=== PATIENT | male | born 1965 | race Caucasian/White ===

== ENCOUNTER 2022-02-15 00:02 | Outpatient (CLI) | payer MEDICAID, SELFPAY ==
--- NOTE | 2022-02-15 | DI.NM_ITS ---
APPROVED REPORT Exam: Exercise Treadmill Patient Location: Out-Patient Room/Bed: Stress Nurse: Lali Carballo RN Ordering Provider:SAULO GARCÍA, Contact Number: [phone] BMI: 29.53 Baseline Rhythm: Sinus Rhythm Indications: SYNCOPE AND COLLAPSE Medical History Medical History: GERD, HTN, HLD, DM II, Sleep apnea Cardiac Medications: Omeprazole, Atorvastatin, Amlodipine Allergies: No known drug allergies Cardiac Risk Factors: HTN, Hyperlipidemia, DM, Smoking (current) Previous Cardiac Procedures: None Pretest Chest Pain Characteristics: No chest pain Exercise History: Sedentary Physical Disabilities: Left leg Lung Sounds: Right side CTA, Left side exp. wheeze Heart Sounds: Regular Stress Test Details Test: Exercise stress testing was performed using a Octavio protocol. Nuclear Acquisition: Rest Tc-99m/Stress Tc-99m 1 day Rest Isotope: Tc-99m Sestamibi. Dose: 11.3 Date: 02/15/2022 Injection Time: 0820 Stress Isotope: Tc-99m Sestamibi. Dose: 37.0 Date: 02/15/2022 Injection Time: 1005 HR Resting HR Supine: 76 bpm Max Heart Rate (APMHR): 165 bpm Resting HR Standin bpm Target HR (85% APMHR): 140 bpm Max HR Achieved: 148 bpm % of APMHR: 89 Recovery HR: 99 bpm HR response to stress: Normal HR response to stress BP Resting BP Supine: 154/98 mmHg Resting BP Standin/100 mmHg Max BP: 202/82 mmHg Recovery BP: 178/92 mmHg BP response to stress: Normal blood pressure response to stress. Comment: Hypertensive at baseline. ECG Resting ECG: Sinus Rhythm Ectopy: PVCs Stress ECG: Sinus Tachycardia ST Change: Horizontal ST depression Arrhythmia: frequent PVCs Recovery ECG: Sinus Rhythm Recovery ST Change: Horizontal ST depression Lead(s): inferior leads Recovery ST Deviation: 1 mm Recovery Arrhythmia: PVCs, couplet Clinical Reason for Termination: Fatigue, Leg pain Stress Symptoms: Dyspnea, Dizziness, General Fatigue, Leg pain, Shakiness Exercise duration: 04 min20 sec Highest Stage Reached: Stage 2: 2.5 mph at 12% grade. Exercise capacity: 6.22 METs Bland Treadmill Score: 3.5 Rate Pressure Product: 96264 Stress ECG Conclusion 1. Resting electrocardiogram showed voltage for left ventricular hypertrophy 2. Patient exercised on the Octavio protocol and completed a workload of 6.22 METS 3. Resting hypertension. Normal hemodynamic response to exercise. The patient achieved 89% of predi cted heart rate for age 4. The electrocardiographic portion of the test did not show any evidence of myocardial ischemia 5. PVCs were noted Bland Treadmill Score is 3.5 which is Moderate risk. Stress Test Summary STAGE Time (mins) Speed (mph) Grade (%) HR BP SYMPTOMS METS Supine 76 154/98 Standing 87 170/100 1 3 1.7 10 138 200/98 4.6 1 min recovery 140 202/82 3 min recovery 114 200/90 6 min recovery 99 178/92
--- OUTSIDE RECORDS SUMMARY | 2022-02-15 00:04 | XMS_ITS | Encounter Summary ---
:1965 Author Care Team Providers Name Role Phone Roque Singh MD Primary Care Provider [phone] Nette Clintoneu Network Communications Engineer [phone] Leesa Kilmarnock Project Technician [phone] Travis De Jesus MD General Surgeon [phone] Niko Banks MD Urologist [phone] Reason for Visit Renal mass; Hypertensive disorder Assessment and Plan 1. Renal mass Pending further evaluation [facility]. Any procedure will have to be coordinated with DVT treatment. Is been at least 6 months. Patient was e ncouraged to move forward with further evaluation and treatment [facility]. Case management assistance was offered but declined 2. Hypertensive disorder Patient advised to continue to avoid lisinopril in the setting of chronic cough. Trial amlodipine. Hypertension ex acerbated by significant alcohol intake daily ? amlodipine 10 mg tablet 3. Near syncope Patient reports lightheadednes s and shortness of breath with any exertion. Advise nuclear stress test for cardiac e valuation in the setting of the symptoms in addition to upcoming surgery ? NM, myocardial perfusion s can, w/ stress 4. Alcohol dependence Patient endorses daily consump tion of 10-12 beers. Moderation/cessation advised 5. Nicotine dependence with curr ent use Cessation advised 6. Screening for malignant neopl asm of respiratory tract Patient reports lightheadednes s and shortness of breath with any exertion.. Low-dose screening chest CT advised in t he setting of symptoms in addition to upcoming surgery ? LDCT, chest, for lung canc er screening 7. Chronic cough Recent upper endoscopy was nor mal. Discontinue lisinopril 8. Obstructive sleep apnea syndr ome Patient describes significant apneic episodes at home. Sleep study consultation pending 9. Colitis Well-controlled on current reg imen 10. Chronic low back pain Patient advised to avoid ibupr ofen in the setting of concurrent Xarelto use. He has used hydrocodone low-dose in the past with good result. Resume that daily as needed ? hydrocodone 5 mg-acetamino phen 325 mg tablet 11. Anxiety Significant anxiety likely exa cerbated by ongoing alcohol use. Discussion Note: None recorded.Patient educational handouts: No information available. Plan of Care Reminders Provider Appointments Follow up 20 Reilly Singh MD 03/04/2022 2:00PM ? Office 30 Melissa barker NP 03/16/2022 9:30AM Lab None ? ? recorded. Referral None ? ? recorded. Procedures None ? ? recorded. Surgeries None ? ? recorded. Imaging [place], [facility] My[facility] Perfusion 01/11/2022 [facility] ? [facility], Chest, [facility] 01/11/2022 [facility] (Radiol ogy) Medications Name Start Date ? ? amlodipine 10 mg tablet ? Take 1 tablet every day by oral route. budesonide DR - ER 3 mg capsule,delayed,extended relea se ? Take 1 capsule every day by oral route for 90 days. cyclobenzaprine 10 mg tablet ? Take 1 tablet every day by oral route for 30 days. fluocinonide 0.05 % topical cream ? APPLY TO THE AFFECTED AREA(S) BY TOPICAL ROUTE ONCE D AILY hydrocodone 5 mg-acetaminophen 325 mg tablet ? Take 1 tablet every day by oral route as needed for 2 8 days. Multi Vitamin 07/21/2021 1 tablet daily omeprazole 40 mg capsule,delayed release ? TAKE 1 CAPSULE BY MOUTH EVERY DAY ondansetron HCl 4 mg tablet ? Take 1 tablet twice a day by oral route as needed. Prescription - Prior Authorization Request ? sumatriptan 50 mg tablet 07/21/2021 Take 1 tab at onset of headache. If in itial dose was partially effective or headache recurs, may repeat a dose after [?]2 hours. Maximum dose 200 mg per 24 hours Xarelto 20 mg tablet ? Take 1 tablet every day by oral route for 30 days. Notes: 08/25/2021 verbal review -insurance will not cover budesonide DR-ER 9mg tablet Medications Administered None recorded. Vitals Height Weight BMI Blood Pressure 5 ft 9 in 202 lbs 9.6 oz 29.9 kg/m2 158/98 mm[Hg] Results Lab Results None recorded. Allergies Code Code System Name Reaction Severity Onset 7363 RxNorm Metformin Itching ? ? 7804 RxNorm Oxycodone Itching ? ? Notes: fiberglass Problems Name Status Onset Date Source ? Right Inguinal Hernia Active 02/28/2018 ? Type 2 Diabetes Mellitus without Active 01/16/2019 ? Complication Depressive Disorder Active 01/16/2019 ? Deep Venous Thrombosis Active 07/07/2021 ? Hyperlipidemia Active 09/21/2021 ? Renal Mass Active 09/21/2021 ? Raised Prostate Specific Antigen Active 09/21/2021 ? Nicotine Dependence with Current Use Active 09/21/2021 ? Renal Insufficiency Active 09/21/2021 ? Anxiety Active 11/05/2021 ? Alcohol Dependence Active 11/05/2021 ? Chronic Pain Active 11/05/2021 ? Colitis Active 11/05/2021 ? Obstructive Sleep Apnea Syndrome Active 01/11/2022 ? Chronic Low Back Pain Active 01/11/2022 ? Chronic Cough Active 01/11/2022 ? Overweight Active ? History Nicotine Dependence Active ? History Hypertensive Disorder Active ? 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 History Neck Pain Active ? History Neck Sprain Active ? History Adult Health Examination Active ? History Notes: pt anxiety related to [facility] care facilities and needles Procedures Date Name Performed by ? 07/21/2021 Colonoscopy Information not avai lable 02/08/2019 Hernia Repair Inguinal Information not a vailable Notes: right recurrent. Repair by Dr Sunshine Salazar 03/15/2018 Hernia Repair Information not avai lable Notes: Inguinal ? Hand Surgery Information not avai lable Notes: right ring finger ? Circumcision Information not avai lable 01/11/2022 NM, Myocardial Perfusion Scan, W/ [facility] (Radiology) Stress [address] [place] [address] [place] [address] ([address]) 01/11/2022 LDCT, Chest, for Lung Cancer [facility] (Radiology) Screening [address] [place] [address] [place] [address] (Work Place) Vaccine List Notes: Patient states he is scar ed of needles he states he has refused Tetnas and flu due to his fear of needles. 10/09 Social History Tobacco Smoking Status Heavy Tobacco Smoker (1 pack Notes: 1 ppd or less per day) recently, started at 19 years old What type of diet are you REGULAR following? Are you currently employed? N What is your code status? 0 Suspected/Known Abuse Or No Neglect? If so, how many times? 1 How much tobacco do you chew? none Are you currently in school? N What is your relationship Notes: 2 ch ildren status? Did the fall result in an N injury? Animal exposure? N What is your level of alcohol Moderate Notes: Currently 6 + consumption? beers daily. Screened for Covid-19 Y Do you have any pets? Y Have you been to an area known N to be high risk for COVID-19? Are you deaf or do you have Y Notes: vasquez pposed to wear serious difficulty hearing? hearing aids but doesn't Are you passively exposed to Y smoke? Do you or have you ever used N any other forms of tobacco or nicotine? Drug Use N N Have you recently or are you N planning to travel to an area with Zika virus? Any signs of neglect or abuse? no signs of neglect or abuse noted What is the highest grade or [id number] level of school you have completed or the highest degree you have received? Are you blind or do you have N Notes: w ears glasses difficulty seeing? Have you used IV drugs? N Do you have smoke and carbon Y monoxide detectors in your home? In the 14 days before symptom N onset, have you had close contact with a person who is under investigation for COVID-19 while that person was ill? Do you reside in or have you N traveled to an area where Ebola virus transmission is active? What was the date of your most 08/25/2021 recent tobacco screening? Do you or have you ever used Never used electronic e-cigarettes or vape? cigarettes Do you have an advanced Y directive? Do you feel safe at home? Y Do you use any illicit or N recreational drugs? How many years have you smoked 34 tobacco? In the 14 days before symptom N onset, have you had close contact with a laboratory-confirmed COVID-19 while that case was ill? What is your exercise level? 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 Live alone or with others? with others Do you or have you ever used Never used smokeless tobacco smokeless tobacco? Language Difficulties No What is your current pack 20-29packyears years? Do you have any dietary N restrictions? Hard of hearing or deaf in one Y or both ears? What is your level of caffeine None consumption? Have you recently traveled N abroad? What is your occupation? [employer] Have you fallen in the last 3 N months? Functional Status Are you deaf or do you Yes have serious difficulty hearing? ? Past Encounters 01/11/2022 Renal Mass; Hypertensive Disorder; Near Syncope; Alcohol Dependence; Nicotine Dependence with Current Use; Screening for Malignant Neoplasm of Respiratory Tract; Chronic Cough; Obstructive Sleep Apnea Syndrome; Colitis; Chronic Low Back Pain; Anxiety Roque Singh MD: [address] [place] [address], Ph. 01/06/2022 Snoring; Health Education Given; Essenti al Hypertension; Cigarette Smoker Melissa García NP: [address] [place] [address], Ph. History of Present Illness Note: <div>01/11/22: Follow up renal mass and HTN.</div><div>
</div>&lt ;div>
</div><div>09/07/21 urologist referral - pt has renal mass , please farnaz rossana same day as consult at [facility] </div><div>Mr. Galeas returns to discuss his renal mass situation.</div><div>
</div><div>At his initial visit he had a multitude of concerns and the renal lesion was not primary. However a lot has happened since, and he is looking and feeling remarkably better.</div><div>
</div><div>He says his difficulty voiding was from severe dehydration from colitis. His colitis has since been treated and he has gained 35-40 pounds (by chart more like 18). He has a betterappetite. He no longer had voiding complaints. I pee better than ever!</div&gt ;<div>
</div><div>He also says that as he is feeling better, his sex drive is returning as well.</div><div>
</div><div>He turned out to have a large left LE DVT up to his groin when we referred him from our initial appt to his PCP who sent him to the ER. He is on Xarelto. He says he did not have a PE. His leg swelling and pain are remarkablyimproved.</div><div>
</div><div>The renal mass noted on non-contrast CT 06/02/21 was not visualized on the US so we could not conclude it was a cyst. The MRI showed a 2.2 cm mass read as low grade malignancy vs oncocytoma. A left adrenal adenoma was noted. A 3 mm right renal calculus was noted on CT 07/28/21. The renal mass was not noted on the July CT (ordered by his PCP).</div><div>
</div><div>I discussed his case with Dr. Muñoz after the MRI was resulted. 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 Dr. Muñoz suggested he likely will require partial nephrectomy and that he often forgoes biopsy in the setting of VTE disease. He related that the Hematology/Coagulation team pushes for treatment of possible neoplastic disease.</div><div>
</div><div>Patient was made aware that he requires [facility] referral for same day appts with Dr. Muñoz and Hematology. I will inquire if they require an updated imaging study before the visit. Nothing would be done for at least 3 months on anti-platelet therapy.</div><div>
</div><div>He mentions his bilateral inguinal hernia repairs did not take.</div><div>
</div><div>He says he cannot work.</div><div>
</div><div>Patient is quite tangential in his history.</div><div>
</div><div>Med list and problem list are updated.</div> Review of Systems: ROS as noted in the HPI Review of Systems ? Notes: <p>Review of systems as prev iously described and otherwise negative for 10 organ systems</p> Physical Exam ? Notes: <p>General: Alert. Anxious</ p><p>HEENT: NCAT. No Nystagmus. Pupils equal, round and reactive.</p><p>Ne ck: Without adenopathy or thyromegaly, Trachea midline.</p><p>Cardiopulmona ry: No cardiopulmonary distress</p><p>Abdomen: Soft, nondistended, nontende r.</p><p>Peripheral Vascular: No edema.</p><p>Neurologic: Enma ke alert and oriented. Cranial nerves II-XII intact. EOMI.</p><p>Musculos keletal: Normal range of motion.</p><p>Skin: Normal Moisture. Warm. Wayne complexion</p><p>Lymphatic: No appreciated adenopathy</p><p>Psychiatric : Appropriate</p>
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
--- OUTSIDE RECORDS SUMMARY | 2022-02-15 00:04 | XMS_ITS | CCD ---
:1965 Author Care Team Providers Name Role Phone MARIA ELENA WAY Attending Physician Unavailable MARIA ELENA WAY Rounding (Secondary) Physician Unavailab le Vital Signs Unknown or Not Available. Allergies Unknown or Not Available. Procedures Unknown or Not Available. History of Immunizations Unknown or Not Available. Problems Unknown or Not Available. Results Unknown or Not Available. Active Medications Unknown or Not Available. Medications Administered During Visit Unknown or Not Available. Encounters Unknown or Not Available. Social History Unknown or Not Available. Patient Decision Aids Unknown or Not Available. Discharge Instructions You were admitted to [facility] on 12/27/2021 15:29 You were discharged from [facility] Should you have any questions prior to d ischarge, please contact a member of your healthcare team. If you have left the spital and have any questions, please contact your primary care physician. Chief Complaint and Reason For Visit Unknown or Not Available. Function Status Unknown or Not Available. Plan of Care Unknown or Not Available. Referral/Transition of Care Unknown or Not Available.
--- OUTSIDE RECORDS SUMMARY | 2022-02-15 00:04 | XMS_ITS ---
:1965 Author Care Team Providers Name Role Phone VIC ODOM MD General Surgeon [phone] BRITNEY POTTS MD Urologist [phone] ROQUE GARCÍA MD Primary Care Provider [phone] MAGO HERRONE [employer] [phone] JUANA YOUNG Real Estate Firm Manager [phone] Allergies Code Code System Name Reaction Severity Status Onset 6809 RxNorm Metformin Itching ? Active ? 4924 RxNorm Oxycodone Itching ? Active ? Notes: fiberglass Medications Name Status Start Date Stop Date ? ? amlodipine 10 mg tablet Active ? Not avai lable Take 1 tablet every day by oral route. atorvastatin 40 mg tablet Completed ? 2021 TAKE 1 TABLET BY MOUTH EVERY DAY azithromycin 250 mg tablet Completed ? 11/20 TAKE 2 TABLETS (500 MG) BY ORAL ROUTE O NCE DAILY FOR 1 DAY THEN 1 TABLET (250 MG) BY ORAL ROUTE ONCE DAILY FOR 4 DAYS Antibiotic for bronchitis benzonatate 200 mg capsule Completed ? 11/20 Take 1 capsule 3 times a day by oral route as needed for 4 days . For cough betamethasone dipropionate 0.05 % topical cream Completed ? 10/14/2020 APPLY A THIN LAYER TO THE AFFECTED AREA(S) BY TOPICAL ROUTE twi ce DAILY budesonide DR - ER 3 mg capsule,delayed,extended release Active ? Not available Take 1 capsule every day by oral route for [address]-ER 9 mg tablet,delayed and extended release Comple blayne ? 09/21/2021 Take 1 tablet every day by oral route for 30 days. clobetasol 0.05 % topical cream Completed 07/21/2021 01/11/2022 APPLY THIN LAYER EXTERNALLY TO THE AFFECTED AREA TWICE DAILY cyclobenzaprine 10 mg tablet Active ? Not available Take 1 tablet every day by oral route for 30 days. DayQuil Liquicaps 30 mg-10 mg-100 mg-250 mg capsule Completed ? 02/01/2019 Take 1 capsule as needed by oral route. famotidine 20 mg tablet Completed 07/21/2021 09/21/20 21 Take 1 tablet twice a day by oral route. fluocinonide 0.05 % topical cream Active ? Not available APPLY TO THE AFFECTED AREA(S) BY TOPICAL ROUTE ONCE DAILY gabapentin 600 mg tablet Completed 05/22/2017 018 1 (one) Tablet: tid hydrocodone 10 mg-acetaminophen 325 mg tablet Completed 03/27/2017 1 (one) Tablet Tablet: every 4-6 hours as needed hydrocodone 5 mg-acetaminophen 325 mg tablet Active ? Not available Take 1 tablet every day by oral route as needed for 28 days. ibuprofen 600 mg tablet Completed ? 01/12/20 22 TAKE 1 TABLET BY MOUTH TWICE DAILY NEEDED lisinopril 10 mg tablet Completed ? 12/24/19 22 TAKE 1 TABLET BY MOUTH EVERY DAY Lomotil 2.5 mg-0.025 mg tablet Completed 07/21/2021 1 11/22/2020 Take 2 tablets 4 times a day by oral route as needed for 28 day s. meloxicam 15 mg tablet Completed 03/22/2016 7 1 (one) Tablet: qd - daily metformin 500 mg tablet Completed ? 04/15/20 Take 1 tablet every day by oral route for 90 days. Multi Vitamin Active 07/21/2021 Not available 1 tablet daily NyQuil Liquicaps capsule Completed ? 019 Take 1 capsule as needed by oral route. omeprazole 20 mg capsule,delayed release Completed 016 03/27/2017 1 (one) Capsule Capsule DR: daily omeprazole 40 mg capsule,delayed release Active ? Not available TAKE 1 CAPSULE BY MOUTH EVERY DAY ondansetron HCl 4 mg tablet Active ? Not available Take 1 tablet twice a day by oral route as needed. prednisone 20 mg tablet Completed ? 10/07/20 20 TK 1 T PO QD FOR 5 DAYS sertraline 50 mg tablet Completed ? 04/15/20 19 Take 1 tablet every day by oral route for 30 days. sumatriptan 50 mg tablet Active 07/21/2021 Not denise ilable Take 1 tab at onset of headache. If in itial dose was partially effective or headache recurs, may repeat a dose after [?]2 hours. Maximum dose 200 mg per 24 hours tamsulosin 0.4 mg capsule Completed 07/21/20212020 TAKE 1 CAPSULE BY MOUTH EVERY DAY triamcinolone acetonide 0.1 % topical cream Completed 07/0907/30/2021 APPLY A THIN LAYER TO THE AFFECTED AREA(S) BY TOPICAL ROUTE 2 T IMES PER DAY triamcinolone acetonide 0.1 % topical ointment Completed ? 06/30/2021 APPLY EXTERNALLY TO THE AFFECTED AREA TWICE DAILY Xarelto 15 mg tablet Completed 07/21/2021 09/21/2021 Take 1 tablet twice a day by oral route for 21 days. Xarelto 20 mg tablet Active ? Not availab le Take 1 tablet every day by oral route for 30 days. Notes: 08/25/2021 verbal review -insurance will not cover budesonide DR-ER 9mg tablet Problems Name Status Onset Date Source ? [...] History Adult Health Examination Active ? History Procedure by Method Unknown ? History Finding of Esophagus Unknown ? History Inflammatory Dermatosis Unknown ? History Notes: pt anxiety related to a lt care facilities and needles Procedures Date Name Performed by ? 07/21/2021 Colonoscopy Information not avai lable 02/08/2019 Hernia Repair Inguinal Information not a vailable Notes: right recurrent. Repair by Dr Sunshine Salazar 03/15/2018 Hernia Repair Information not avai lable Notes: Inguinal ? Hand Surgery Information not avai lable Notes: right ring finger ? Circumcision Information not avai lable 12/19/2018 CT, Pel[facility], [facility] [address] [place] [address] (Work Place) 04/15/2019 US, Chest [facility] Radiology (Internal) [address] [place] [address] (Work Place) 05/14/2021 CT, Abdomen + Pelvis, W/o Contrast [facility] Radiology (Internal) [address] [place] [address] (Work Place) 06/04/2021 CT, Head + Brain, W/o Contrast [facility] Radiology (Internal) [address] [place] [address] (Work Place) 06/17/2021 XR, Chest, 2 View [facility] Radiology (Internal) [address] [place] [address] (Work Place) 07/27/2021 US, Abdomen, Limited [facility] Radiology (Internal) [address] [place] [address] (Work Place) 06/25/2021 MRI, Abdomen, W/wo Contrast [facility] Radiology (Internal) [address] [place] [address] (Work Place) 06/28/2021 NM, Lung Scan, Ventilation/perfusion [facility] Radiology (Internal) [address] [place] [address] (Work Place) 06/28/2021 CT, Abdomen + Pelvis, W/o Contrast [facility] Radiology (Internal) [address] [place] [address] (Work Place) 01/11/2022 NM, Myocardial Perfusion Scan, W/ [facility] (Radiology) Stress [address] [place] [address] ( (Work Place) 01/11/2022 LDCT, Chest, for Lung Cancer [facility] (Radiology) Screening [address] [facility] [place] [address] (Work Place) Results Lab Results Date Name Specimen Result Interpretation Description Value Range Status Address ? 09/06/2021 Urinalysis, Urine ? Color Yellow ? ? P _urology: Dipstick, Reflex clean [address], [place] ? ? Urine ? Appearance Clear ? ? P_uro logy: clean [address] [place] ? ? Urine ? Glucose Normal ? ? P_urolog y: clean [address], [place] ? ? Urine ? Bilirubin Negative ? ? P_ur ology: clean [address] [place] ? ? Urine ? Ketones Negative ? ? P_urol ogy: clean [address] [place] ? ? Urine ? Specific 1.020 ? ? P_urolo gy: clean Regan [address] [place] ? ? Urine ? Blood Small ? ? P_urology: clean [address] [place] ? ? Urine ? Ph 5.5 ? ? P_urology: clean [address] [place] ? ? Urine ? Protein 3+ ? ? P_urolog y: clean [address] [place] ? ? Urine ? Urobilinog 0.2 ? ? P_uro logy: clean en [address] [place] ? ? Urine ? Nitrite negative ? ? P_urol ogy: clean [address] [place] ? ? Urine ? Leukocyte Negative ? ? P_ur ology: clean Esterase [address] [facility] Pathology Study TISS ? Report (see ? Quang Rajput below) [facility] Lab (Internal) : [address] 06/25/2021 Urinalysis, Urine ? Color Yellow ? ? P _urology: Dipstick, Reflex clean [address], [place] ? ? Urine ? Appearance Clear ? ? P_uro logy: clean [address] [place] ? ? Urine ? Glucose Normal ? ? P_urolog y: clean [address] [place] ? ? Urine ? Bilirubin Small ? ? P_urol ogy: clean [address] [place] ? ? Urine ? Ketones Trace ? ? P_urolog y: clean [address] [place] ? ? Urine ? Specific 1.025 ? ? P_urolo gy: clean Regan [address], [place] ? ? Urine ? Blood Trace ? ? P_urology: clean [address] [place] ? ? Urine ? Ph 5.0 ? ? P_urology: clean [address] [place] ? ? Urine ? Protein 1+ ? ? P_urolog y: clean [address] [place] ? ? Urine ? Urobilinog 0.2 ? ? P_uro logy: clean en [address] [place] ? ? Urine ? Nitrite negative ? ? P_urol ogy: clean [address] [place] ? ? Urine ? Leukocyte Negative ? ? P_ur ology: clean Esterase [address] [employer] [place] 06/10/2021 CMP, Serum or S High g/r 111 mg/dL 74-106 Fin al [place] Plasma mg/dL [facility] Hospital Lab (Internal) : [address] ? ? S ? Bun 18 mg/dL 9-20 Final [place] mg/dL [facility] (Internal) : [address] ? ? S High Crea 2.20 0.66-1 Final [place] mg/dL .25 [place] mg/dL Hospital Lab (Internal) : [address] ? ? S ? Ca 8.7 mg/dL 8.4-10 Final North .2 [place] mg/dL Hospital Lab (Internal) : [address] ? ? S Low Na 135 137-14 Final [place] mmol/L 5 [place] mmol/L Hospital Lab (Internal) : [address] ? ? S ? K 4.7 3.5-5. Final [place] mmol/L 1 [place] mmol/L Hospital Lab (Internal) : [address] ? ? S ? Cl 98 mmol/L 98-107 Final [place] mmol/L [facility] Hospital Lab (Internal) : [address] ? ? S ? Tco2 24.0 22.0-3 Final [place] mmol/L 0.0 [place] mmol/L Hospital Lab (Internal) : [address] ? ? S ? Tp 7.6 g/dL 6.3-8. Final North 2 g/dL [facility] Lab (Internal) : [address] [place] ? ? S ? Alb 3.8 g/dL 3.5-5. Final [place] 0 g/dL [facility] Lab (Internal) : [address] [place] ? ? S Low Tbil 0.1 mg/dL 0.2-1. Final [place] 3 [facility] mg/dL Hospital Lab (Internal) : [address] [place] ? ? S ? Alp 127 U/L 50-136 Final [place] U/[facility] Lab (Internal) : [address] [place] ? ? S ? Alt (Sgpt) 40 U/L 21-72 Final [facility] Lab (Internal) : [address] [place] ? ? S ? Ast (Sgot) 56 U/L 17-59 Final [facility] Lab (Internal) : [address] 06/10/2021 Urinalysis, UR ? UA-color yellow pale Final [place] Dipstick, Reflex yellow [facility] Lab (Internal) : [address] [place] ? ? UR ? UA-appear clear clear Final [facility] Lab (Internal) : [address] [place] ? ? UR ? UA-spec 1.020 1.003- Final [place] Grav 1.035 [facility] Lab (Internal) : [address] [place] ? ? UR ? UA-pH 5.5 [pH] 4.6-8. Final [place] 0 [pH] [facility] Lab (Internal) : [address] ? ? UR ? UA-leuk negative negati Final [facility] Lab (Internal) : [address] [place] ? ? UR ? UA-nitrite negative negati Final [facility] Lab (Internal) : [address] [place] ? ? UR ABNORMA UA-prot 2+ negati Final [facility] Lab (Internal) : [address] ? ? UR ? UA-gluc negative negati Final [facility] Lab (Internal) : [address] ? ? UR ? UA-ketone negative negati Final [facility] Lab (Internal) : [address] ? ? UR ? UA-urobil normal normal Final [facility] Lab (Internal) : [address] ? ? UR ? UA-bili negative negati Final [facility] Lab (Internal) : [address] ? ? UR ABNORMA UA-blood trace negati Final [facility] Lab (Internal) : [address] 06/10/2021 Urinalysis, UR ? UA-WBC 0-3 [hpf] 0-3 [facility] Microscopic [hpf] Count Hospital Lab (Internal) : [address] ? ? UR ? UA-RBC 0-2 [hpf] 0-2 Final [place] [hpf] [facility] Lab (Internal) : [address] ? ? UR ? UA-bacteri rare none Final [place] a [hpf] seen [facility] [hpf] Hospital Lab (Internal) : [address] ? ? UR ABNORMA UA-epithel few [hpf] none Final N orth L ial seen [facility] [[facility]] Hospital Lab (Internal) : [address] ? ? UR ABNORMA UA-mucus few [hpf] none Final Nor th L seen [facility] [hpf] Hospital Lab (Internal) : [address] 06/02/2021 CBC W/ Auto Diff BLD High Wbc 12.1 5.0-10 [facility] 10*3/uL .0 [facility] 10*3/u Hospital L Lab (Internal) : [address] ? ? BLD Low Rbc 4.46 4.60-6 [facility] 10*6/uL .00 [facility] 10*6/u Hospital L Lab (Internal) : [address] ? ? BLD Low Hgb 13.3 g/dL 14.0-1 [facility] 8.0 [place] g/dL Hospital Lab (Internal) : [address] ? ? BLD Low Hct 40.5 % 41.0-5 [facility] 1.0 % [facility] Hospital Lab (Internal) : [address] ? ? BLD ? Mcv 90.8 fL 80.0-9 Final [place] 6.0 fL [facility] Lab (Internal) : [address] ? ? BLD ? Mch 29.8 pg 26.0-3 Final [place] 2.0 pg [facility] Lab (Internal) : [address] ? ? BLD ? Mchc 32.8 g/dL 31.0-3 Final North 5.0 [facility] g/dL Hospital Lab (Internal) : [address] ? ? BLD ? Rdw 13.3 % 11.5-1 Final [facility] 4.5 % [facility] Lab (Internal) : [address] ? ? BLD ? Plt 316 130-45 Final North 10*3/uL 0 [facility] 10*3/u Hospital L Lab (Internal) : [address] t 06/02/2021 CMP, Serum or S ? g/r 96 mg/dL 74-106 Frances l [place] Plasma mg/dL [facility] Hospital Lab (Internal) : [address] ? ? S ? Bun 19 mg/dL 9-20 Final [place] mg/dL [facility] Hospital Lab (Internal) : [address] ? ? S High Crea 3.20 0.66-1 Final [place] mg/dL .25 [facility] mg/dL Hospital Lab (Internal) : [address] ? ? S ? Ca 8.4 mg/dL 8.4-10 Final [place] .2 [place] mg/dL Hospital Lab (Internal) : [address] ? ? S ? Na 137 137-14 Final [place] mmol/L 5 [facility] mmol/L Hospital Lab (Internal) : [address] ? ? S ? K 4.5 3.5-5. Final [place] mmol/L 1 [facility] mmol/L Hospital Lab (Internal) : [address] ? ? S ? Cl 100 98-107 Final [place] mmol/L mmol/L [facility] Hospital Lab (Internal) : [address] ? ? S ? Tco2 24.0 22.0-3 Final [place] mmol/L 0.0 [facility] mmol/L Hospital Lab (Internal) : [address] ? ? S ? Tp 6.9 g/dL 6.3-8. Final [place] 2 g/dL [facility] Lab (Internal) : [address] ? ? S Low Alb 3.4 g/dL 3.5-5. Final [place] 0 g/dL [facility] Lab (Internal) : [address] ? ? S Low Tbil 0.1 mg/dL 0.2-1. Final [place] 3 [facility] mg/dL Hospital Lab (Internal) : [address] ? ? S ? Alp 121 U/L 50-[address] [facility] Lab (Internal) : [address] ? ? S ? Alt (Sgpt) 35 U/L 21-[address] [facility]/L [facility] Lab (Internal) : [address] ? ? S ? Ast (Sgot) 48 U/L 17-[address] [facility] Lab (Internal) : [address] 06/02/2021 Lipase, Serum or S ? Lip 273 U/L 23-300 Fi nal [place] Plasma U/L [facility] Lab (Internal) : [address] 06/02/2021 Differential, BLD ? Polys 69 % 40-75 Final [facility] Blood % [facility] Lab (Internal) : [address] ? ? BLD ? Bands 0 % 0-5 % Final [facility] Lab (Internal) : [address] ? ? BLD ? Lymphs 21 % 20-50 Final [facility] Lab (Internal) : [address] ? ? BLD ? Reynolds 10 % 2-10 % Final [facility] Lab (Internal) : [address] ? ? BLD ? Eos 0 % 0-6 % Final [facility] Lab (Internal) : [address] ? ? BLD ? Baso 0 % 0-1 % Final [facility] Lab (Internal) : [address] ? ? BLD ? Atyp Lymph 0 % ? Final [facility] Lab (Internal) : [address] ? ? BLD ? Plts, Est. adequate adequa Final [facility] th [facility] Lab (Internal) : [address] ? ? BLD ? RBC normal normal Final [facility] Lab (Internal) : [address] [facility] 06/02/2021 Neutrophil Count, BLD ? Anc-manual 8.37 ? Final [place] Absolute (Anc), 10*3/uL [facility] Blood [facility] Lab (Internal) : [address] [facility] 06/02/2021 Nlr-manual BLD High Nlr - 3.29 0.00-3 Final No rth Manual .20 [facility] Hospital Lab (Internal) : [address] [facility] 06/02/2021 Giardia Lamblia STL ? Giardia negative negati Final [place] Ag, EIA, Stool ve [facility] Lab (Internal) : [address] [facility] 06/02/2021 C Diff Toxin STL ? C. Diff negative negati Fin [facility] Genes, Qual, PCR, ([facility]) ve [facility] Lab (Internal) : [address] [facility] 06/02/2021 Gastrointestinal STL ? Salmonella negative neg ati Final [place] Pathogens Panel, PCR ve [facility] PCR, Stool Hospit al Lab (Internal) : [address] ? ? STL ? Shigella negative negati Final [place] PCR [facility] Lab (Internal) : [address] ? ? STL ? Campylobac negative negati Final Nor th ter PCR [facility] Lab (Internal) : [address] ? ? STL ? Shiga negative negati Final [place] Toxin PCR [facility] Lab (Internal) : [address] 05/12/2021 Amylase, Serum or S ? Massiel 105 U/L 30-110 F inal [place] Plasma U/L [facility] Lab (Internal) : [address] [facility] 05/12/2021 Lipase, Serum or S High Lip 366 U/L 23-300 Fi nal [place] Plasma U/L [facility] Lab (Internal) : [address] [facility] 05/12/2021 CMP, Serum or S High g/r 118 mg/dL 74-106 Fin al [place] Plasma mg/dL [facility] Lab (Internal) : [address] ? ? S ? Bun 13 mg/dL 9-20 Final [place] mg/dL [facility] Hospital Lab (Internal) : [address] ? ? S High Crea 2.40 0.66-1 Final [place] mg/dL .25 [facility] mg/dL Hospital Lab (Internal) : [address] ? ? S ? Ca 9.9 mg/dL 8.4-10 Final [place] .2 [place] mg/dL Hospital Lab (Internal) : [address] ? ? S Low Na 133 137-14 Final [place] mmol/L 5 [facility] mmol/L Hospital Lab (Internal) : [address] ? ? S ? K 4.0 3.5-5. Final [place] mmol/L 1 [facility] mmol/L Hospital Lab (Internal) : [address] ? ? S Low Cl 97 mmol/L 98-107 Final [place] mmol/L [facility] Hospital Lab (Internal) : [address] ? ? S Low Tco2 21.0 22.0-3 Final [place] mmol/L 0.0 [facility] mmol/L Hospital Lab (Internal) : [address] ? ? S High Tp 8.3 g/dL 6.3-8. Final [place] 2 g/dL [facility] Hospital Lab (Internal) : [address] ? ? S ? Alb 4.5 g/dL 3.5-5. Final [place] 0 g/dL [facility] Hospital Lab (Internal) : [address] ? ? S ? Tbil 0.3 mg/dL 0.2-1. Final [place] 3 [place] mg/dL Hospital Lab (Internal) : [address] ? ? S ? Alp 84 U/L 50-136 Final [place] U/L [facility] Hospital Lab (Internal) : [address] ? ? S ? Alt (Sgpt) 45 U/L 21-72 Final [place] U/L [facility] Hospital Lab (Internal) : [address] ? ? S ? Ast (Sgot) 48 U/L 17-59 Final [place] U/L [facility] Hospital Lab (Internal) : [address] 05/12/2021 CBC W/ Auto Diff BLD High Wbc 10.3 5.0-10 Fin al [facility] 10*3/uL .0 [facility] 10*3/u Hospital L Lab (Internal) : [address] [place] ? ? BLD ? Rbc 5.16 4.60-6 Final [place] 10*6/uL .00 [facility] 10*6/u Hospital L Lab (Internal) : [address] [place] ? ? BLD ? Hgb 15.2 g/dL 14.0-1 Final [place] 8.0 [place] g/dL Hospital Lab (Internal) : [address] [place] ? ? BLD ? Hct 46.2 % 41.0-5 Final [place] 1.0 % [facility] Lab (Internal) : [address] [place] ? ? BLD ? Mcv 89.5 fL 80.0-9 Final [place] 6.0 fL [facility] Hospital Lab (Internal) : [address] [place] ? ? BLD ? Mch 29.5 pg 26.0-3 Final [place] 2.0 pg [facility] Hospital Lab (Internal) : [address] [place] ? ? BLD ? Mchc 32.9 g/dL 31.0-3 Final [place] 5.0 [place] g/dL Hospital Lab (Internal) : [address] [place] ? ? BLD ? Rdw 13.0 % 11.5-1 Final [place] 4.5 % [facility] Hospital Lab (Internal) : [address] [place] ? ? BLD ? Plt 268 130-45 Final [place] 10*3/uL 0 [facility] 10*3/u Hospital L Lab (Internal) : [address] [place] 05/12/2021 Differential, BLD ? Polys 59 % 40-75 Final [place] Manual, Blood % Cou ntry Hospital Lab (Internal) : [address] [place] ? ? BLD ? Bands 0 % 0-5 % Final [facility] Hospital Lab (Internal) : [address] [place] ? ? BLD ? Lymphs 21 % 20-50 Final [facility] Hospital Lab (Internal) : [address] [place] ? ? BLD High Reynolds 17 % 2-10 % Final [facility] Hospital Lab (Internal) : [address] [place] ? ? BLD ? Eos 2 % 0-6 % [facility] ([facility]) : [address] ? ? BLD ? Baso 0 % 0-1 % Final [facility] Lab (Internal) : [address] ? ? BLD ? Atyp Lymph 0 % ? Final [facility] Lab (Internal) : [address] ? ? BLD High Young 1 % 0-0 % Final [facility] Lab (Internal) : [address] ? ? BLD ? Plts, Est. adequate adequa Final [facility] Hospital Lab (Internal) : [address] ? ? BLD ? RBC normal normal Final [facility] Hospital Lab (Internal) : [address] 05/12/2021 Neutrophil Count, BLD ? Anc-manual 6.08 ? Final [place] Absolute (Anc), 10*3/uL [facility] Hospital Lab (Internal) : [address] 05/12/2021 Nlr-manual BLD ? Nlr - 2.81 0.00-3 Final No rth Manual .20 [facility] Hospital Lab (Internal) : [address] 02/08/2021 SARS CoV 2 RNA SWAB ? 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 ? SWAB ? Performing jovan ? Final [place] Lab [address] [facility] lab Hospita l Lab (Internal) : [address] 10/14/2020 HbA1C (Hemoglobin BLD ? Ha1C 5.8 % 4.0-6. Fi nal [place] a1C), Blood 0 % Count Hospital Lab (Internal) : [address] 10/14/2020 CMP, Serum or S High g/r 118 mg/dL 74-106 Fin al [place] Plasma mg/dL [facility] Lab (Internal) : [address] ? ? S ? Bun 10 mg/dL 9-20 Final [place] mg/dL [facility] Lab (Internal) : [address] ? ? S High Crea 1.40 0.66-1 Final [place] mg/dL .25 [place] mg/dL Hospital Lab (Internal) : [address] ? ? S ? Ca 9.1 mg/dL 8.4-10 Final [place] .2 [place] mg/dL Hospital Lab (Internal) : [address] [place] ? ? S ? Na 140 137-14 Final [place] mmol/L 5 [place] mmol/L Hospital Lab (Internal) : [address] ? ? S ? K 4.8 3.5-5. Final [place] mmol/L 1 [place] mmol/L Hospital Lab (Internal) : [address] ? ? S ? Cl 104 98-107 Final [place] mmol/L mmol/L [facility] Hospital Lab (Internal) : [address] ? ? S ? Tco2 30.0 22.0-3 Final [place] mmol/L 0.0 [place] mmol/L Hospital Lab (Internal) : [address] ? ? S ? Tp 7.1 g/dL 6.3-8. Final [place] 2 g/dL [facility] Hospital Lab (Internal) : [address] ? ? S ? Alb 3.5 g/dL 3.5-5. Final [place] 0 g/dL [facility] Hospital Lab (Internal) : [address] ? ? S ? Tbil 0.2 mg/dL 0.2-1. Final [place] 3 Country mg/dL Hospital Lab (Internal) : [address] ? ? S ? Alp 82 U/L 50-136 Final [place] U/L [facility] Hospital Lab (Internal) : [address] ? ? S ? Alt (Sgpt) 47 U/L 21-72 Final [place] U/L [facility] Hospital Lab (Internal) : [address] ? ? S High Ast (Sgot) 99 U/L 17-59 Final [place] U/L [facility] Lab (Internal) : [address] 10/14/2020 Lipid Panel, S High Chol 250 mg/dL 50-200 Frances l North Serum mg/dL [facility] Hospital Lab (Internal) : [address] ? ? S High Trig 174 mg/dL 10-150 Final [place] mg/dL [facility] Hospital Lab (Internal) : [address] ? ? S High Hdl 67 mg/dL 40-60 Final [place] mg/dL [facility] Lab (Internal) : [address] ? ? S High Ldl 148 mg/dL 0-130 Final [place] mg/dL [facility] Hospital Lab (Internal) : [address] 02/19/2019 Urinalysis, Urine ? Color Yellow ? ? P _nc Dipstick, Reflex Surgical: Micro 41 [facility] ? ? Urine ? Appearance Clear ? ? P_nc Surgical: 41 [facility] ? ? Urine ? Glucose Normal ? ? P_nc Surgical: 41 [facility] ? ? Urine ? Bilirubin Negative ? ? P_nc Surgical: 41 [facility] ? ? Urine ? Ketones Negative ? ? P_nc Surgical: 41 [facility] ? ? Urine ? Specific 1.020 ? ? P_nc Regan Surgical: 41 [facility] ? ? Urine ? Blood Small ? ? P_nc Surgical: 41 [facility] ? ? Urine ? Ph 5.5 ? ? P_nc Surgical: 41 [facility] ? ? Urine ? Protein 3+ ? ? P_nc Surgical: 41 [facility] ? ? Urine ? Urobilinog 0.2 ? ? P_nc en Surgical: 41 [facility] ? ? Urine ? Nitrite negative ? ? P_nc Surgical: 41 [facility] ? ? Urine ? Leukocyte Negative ? ? P_nc Esterase Surgical : 41 Load [facility] 12/25/2018 CMP, Serum or S High g/r 127 mg/dL 74-106 Fin al [place] Plasma mg/dL [facility] Hospital Lab (Internal) : [address] ? ? S - Bun 12 mg/dL 9-20 Final [place] mg/dL [facility] Hospital Lab (Internal) : [address] ? ? S - Crea 1.20 0.66-1 Final [place] mg/dL .25 Country mg/dL Hospital Lab (Internal) : [address] ? ? S - Ca 9.2 mg/dL 8.4-10 Final [place] .2 Country mg/dL Hospital Lab (Internal) : [address] ? ? S Low Na 135 137-14 Final [place] mmol/L 5 [place] mmol/L Hospital Lab (Internal) : [address] ? ? S - K 4.1 3.5-5. Final [place] mmol/L 1 [place] mmol/L Hospital Lab (Internal) : [address] ? ? S - Cl 101 98-107 Final [place] mmol/L mmol/L [facility] (Internal) : [address] ? ? S - Tco2 26.0 22.0-3 Final [place] mmol/L 0.0 [place] mmol/L Hospital Lab (Internal) : [address] ? ? S - Tp 8.0 g/dL 6.3-8. Final [place] 2 g/dL [facility] (Internal) : [address] ? ? S - Alb 3.9 g/dL 3.5-5. Final [place] 0 g/dL [facility] (Internal) : [address] ? ? S - Tbil 0.5 mg/dL 0.2-1. Final [place] 3 [place] mg/dL Hospital Lab (Internal) : [address] ? ? S - Alp 109 U/L 50-136 Final [place] U/L [facility] (Internal) : [address] ? ? S - Alt (Sgpt) 71 U/L 21-72 Final [place] U/L [facility] (Internal) : [address] ? ? S High Ast (Sgot) 100 U/L 17-59 Final Nort h U/L [facility] (Internal) : [address] 12/25/2018 Lipid Panel, S High Chol 269 mg/dL 50-200 Frances l [place] Serum mg/dL [facility] Lab (Internal) : [address] ? ? S - Trig 80 mg/dL 10-150 Final [place] mg/dL [facility] Lab (Internal) : [address] ? ? S High Hdl 113 mg/dL 40-60 Final [place] mg/dL [facility] (Internal) : [address] ? ? S High Ldl 140 mg/dL 0-130 Final [place] mg/dL [facility] Hospital Lab (Internal) : [address] 12/25/2018 PSA, Serum or S - PSA Scrn 3.4 NG/mL 0.0-4. Final [place] Plasma 0 Country NG/mL Hospital Lab (Internal) : [address] 02/14/2017 Venipuncture BLD ? Venpn* ? ? Final [facility] Hospital Lab (Internal) : [address] [facility] 02/14/2017 Neutrophil Count, BLD ? Anc-manual 6.64 ? Final [place] Absolute (Anc), 10*3/uL [facility] Blood Hospital Lab (Internal) : [address] [facility] 02/14/2017 Differential, BLD ? Polys 59 % 40-[address] [facility], Blood % Cou [facility] Hospital Lab (Internal) : [address] ? ? BLD ? Bands 0 % 0-5 % Final [facility] Lab (Internal) : [address] ? ? BLD ? Lymphs 23 % 20-50 Final [facility] Hospital Lab (Internal) : [address] ? ? BLD High Reynolds 13 % 2-10 % Final [facility] Lab (Internal) : [address] ? ? BLD ? Eos 2 % 0-6 % Final [facility] Lab (Internal) : [address] ? ? BLD High Baso 2 % 0-1 % Final [facility] Lab (Internal) : [address] ? ? BLD ? Atyp Lymph 1 % ? Final [facility] Lab (Internal) : [address] ? ? BLD ? Plts, Est. adequate adequa Final [facility] Hospital Lab (Internal) : [address] ? ? BLD ? RBC normal normal Final [facility] Hospital Lab (Internal) : [address] 02/14/2017 Uric Acid, Serum S ? Urca 6.8 mg/dL 3.5-8. Final [place] or Plasma 5 Country mg/dL Hospital Lab (Internal) : [address] 02/14/2017 BMP, Serum or S ? g/r 106 mg/dL 74-106 Fin al [place] Plasma mg/dL [place] Hospital Lab (Internal) : [address] ? ? S ? Bun 12 mg/dL 9-20 Final [place] mg/dL [place] Hospital Lab (Internal) : [address] ? ? S ? Crea 1.10 0.66-1 Final [place] mg/dL .25 [place] mg/dL Hospital Lab (Internal) : [address] ? ? S ? Ca 8.9 mg/dL 8.4-10 Final [place] .2 [place] mg/dL Hospital Lab (Internal) : [address] ? ? S ? Na 140 137-14 Final [place] mmol/L 5 Country mmol/L Hospital Lab (Internal) : [address] ? ? S ? K 4.4 3.5-5. Final [place] mmol/L 1 Country mmol/L Hospital Lab (Internal) : [address] ? ? S ? Cl 101 98-107 Final [place] mmol/L mmol/L [facility] Hospital Lab (Internal) : [address] ? ? S ? Tco2 27.0 22.0-3 Final [place] mmol/L 0.0 Country mmol/L Hospital Lab (Internal) : [address] 02/14/2017 CBC W/ Auto Diff BLD High Wbc 11.3 5.0-10 Fin [facility] 10*3/uL .0 Country 10*3/u Hospital L Lab (Internal) : [address] ? ? BLD ? Rbc 4.77 4.60-6 Final [place] 10*6/uL .00 Country 10*6/u Hospital L Lab (Internal) : [address] ? ? BLD ? Hgb 14.9 g/dL 14.0-1 Final [place] 8.0 Country g/dL Hospital Lab (Internal) : [address] ? ? BLD ? Hct 44.1 % 41.0-5 Final [place] 1.0 % [facility] Hospital Lab (Internal) : [address] ? ? BLD ? Mcv 92.5 fL 80.0-9 Final [place] 6.0 fL [place] Hospital Lab (Internal) : [address] ? ? BLD ? Mch 31.2 pg 26.0-3 Final [place] 2.0 pg [facility] Hospital Lab (Internal) : [address] ? ? BLD ? Mchc 33.8 g/dL 31.0-3 Final [place] 5.0 Country g/dL Hospital Lab (Internal) : [address] ? ? BLD ? Rdw 13.6 % 11.5-1 Final [place] 4.5 % [facility] Hospital Lab (Internal) : [address] ? ? BLD ? Plt 256 130-45 Final [place] 10*3/uL 0 [facility] 10*3/u Hospital L Lab (Internal) : [address] florin Past Encounters 01/11/2022 Renal Mass; Hypertensive Disorder; Near Syncope; Alcohol Dependence; Nicotine Dependence with Current Use; Screening for Malignant Neoplasm of Respiratory Tract; Chronic Cough; Obstructive Sleep Apnea Syndrome; Colitis; Chronic Low Back Pain; Anxiety Roque García MD: [address] [place] [phone], Ph. 01/06/2022 Snoring; Health Education Given; Essenti al Hypertension; Cigarette Smoker Melissa García [employer]: [address] [place] [phone], Ph. 11/05/2021 Renal Mass; Acute Nontraumatic Kidney In jursugar; Type 2 Diabetes Mellitus without Complication; Colitis; Ankle Pain; Nausea; Chronic Pain; Nicotine Dependence with Current Use; Alcohol Dependence; Anxiety Roque García MD: [address] [place] [phone], Ph. 10/19/2021 Renal Mass Mago Lang, RN: [address] [place] [phone], Ph. 09/21/2021 Deep Venous Thrombosis; Influenza Vaccin e Needed; Administration of Tetanus Vaccine; Type 2 Diabetes Mellitus without Complication; Renal Mass; Renal Insufficiency; Raised Prostate Specific Antigen; Hyp ertensive Disorder; Nicotine Dependence with Current Use; Hyperlipidemia Roque García MD: [address] [place] [phone], Ph. 09/06/2021 Renal Mass; Kidney Stone; Poor Stream of Urine Britney Potts MD: [address] [place] [phone], Ph. 08/25/2021 Deep Venous Thrombosis; Influenza Vaccin e Needed; Administration of Tetanus Vaccine; Type 2 Diabetes Mellitus without Complication Jennifer Perdue, [employer]: [address] [place] [phone], Ph. 08/19/2021 Diarrhea; Headache; Hypertensive Disorde r; Type 2 Diabetes Mellitus without Complication; Slowing of Urinary Stream; Deep Venous Thrombosis; Neck Pain Rozina Nj NP: [address] [place] [phone], Ph. 08/13/2021 Unintentional Weight Loss; Microscopic C olitis; Gastro-esophageal Reflux Disease with Esophagitis; Serum Creatinine Raised; Renal Mass Vic Odom MD: [address] [place] [phone], Ph. 07/30/2021 Headache; Hypertensive Disorder; Type 2 Diabetes Mellitus without Complication; Slowing of Urinary Stream; Diarrhea Rozina Nj NP: [address] [place] [phone], Ph. 07/02/2021 Diarrhea; Headache; Type 2 Diabetes Vikki itus without Complication; Acute Nontraumatic Kidney Injury; Hyperlipidemia; Screening for Malignant Neoplasm of Prostate Rozina Nj [employer]: [address] [place] [phone], Ph. 06/29/2021 Gastroesophageal Reflux Disease without Esophagitis; Chronic Diarrhea; Unintentional Weight Loss Vic Odom MD: [address] [place] [phone], Ph. 06/25/2021 Kidney Stone; Renal Mass; Poor Stream of Urine; Pain in Left Lower Limb Britney Potts MD: [address] [place] [phone], Ph. 06/17/2021 Headache; Kidney Stone; Dyspnea on Exert ion; Abdominal Pain Rozina Nj, [employer]: [address] [place] [phone], Ph. 06/11/2021 Headache; Kidney Stone; Nausea and Vomit ing; Type 2 Diabetes Mellitus without Complication Rozina Nj [employer]: [address] [place] [phone], Ph. 06/04/2021 Headache; Kidney Stone; Nausea and Vomit ing Rozina Nj, [employer]: [address] [place] [phone], Ph. 05/12/2021 Nausea and Vomiting; Abdominal Pain; Typ e 2 Diabetes Mellitus without Complication Rozina Nj, [employer]: [address] [place] [phone], Ph. 12/30/2020 SHERRELL CowartC: [address] [place] [phone], Ph. 12/04/2020 Skin Lesion Massiel Masters, PT CWS: [address] [place] [phone], Ph. 11/03/2020 Skin Lesion Massiel Masters, PT CWS: [address] [place] [phone], Ph. 10/14/2020 Hypertensive Disorder; Type 2 Diabetes M ellitus without Complication; Atopic Dermatitis Rozina Nj, [employer]: [address] [place] [phone], Ph. Social History Tobacco Smoking Status Heavy Tobacco Smoker (1 pack Notes: 1 ppd or less per day) recently, started at 19 years old Vaccine List Notes: Patient states he is scar ed of needles he states he has refused Tetnas and flu due to his fear of needles. 10/09 Plan of Care Patient Instructions We discussed [...] toño during Sleep Study. Reminders Provider Appointments None recorded. ? ? Lab None recorded. ? ? Referral None recorded. ? ? Procedures None recorded. ? ? Surgeries None recorded. ? ? Imaging None recorded. ? ? Vitals 01/11/2022 09:40AM Follow Up 20 Height Weight BMI Blood Pressure 175.26 cm 91.9 kg 29.9 kg/m2 158/98 mm[Hg] 01/06/2022 01:30PM New Patient 45 Height Weight BMI Blood Pressure 175.26 cm 93.85 kg 30.6 kg/m2 185/107 mm[Hg] 11/05/2021 10:00AM Follow Up 20 Height Weight BMI Blood Pressure 175.26 cm 93.21 kg 30.3 kg/m2 150/90 mm[Hg] 10/19/2021 01:00PM Office 15 Height 175.26 cm 09/21/2021 08:40AM Office EAMON 40 Height Weight BMI Blood Pressure 175.26 cm 90.49 kg 29.5 kg/m2 165/110 mm[Hg] 09/06/2021 09:40AM Office 20 Height Weight BMI Blood Pressure 175.26 cm 88.68 kg 28.9 kg/m2 173/105 mm[Hg] 08/25/2021 08:40AM Acute 40 Height Weight BMI Blood Pressure 175.26 cm 91.17 kg 29.7 kg/m2 162/80 mm[Hg] 08/19/2021 08:00AM Follow Up 20 Height Weight BMI Blood Pressure 175.26 cm 85.33 kg 27.8 kg/m2 160/80 mm[Hg] 07/30/2021 08:20AM Follow Up 20 Height Weight BMI Blood Pressure 175.26 cm 79.92 kg 26 kg/m2 122/78 mm[Hg] 07/02/2021 02:40PM Follow Up 20 Height Weight BMI Blood Pressure 175.26 cm 80.65 kg 26.3 kg/m2 122/82 mm[Hg] 06/29/2021 08:30AM Office 15 Height 175.26 cm 06/25/2021 11:20AM Office 20 Height Weight BMI Blood Pressure 175.26 cm 80.69 kg 26.3 kg/m2 138/84 mm[Hg] 06/17/2021 03:20PM Follow Up 20 Height Weight BMI Blood Pressure 175.26 cm 80.88 kg 26.3 kg/m2 112/70 mm[Hg] 06/11/2021 02:40PM Follow Up 20 Height Weight BMI Blood Pressure 175.26 cm 82.05 kg 26.7 kg/m2 122/78 mm[Hg] 06/04/2021 02:00PM Follow Up 20 Height Weight BMI Blood Pressure 175.26 cm 80.69 kg 26.3 kg/m2 116/66 mm[Hg] 05/12/2021 09:00AM Same Day 20 Height Weight BMI Blood Pressure 175.26 cm 82.74 kg 26.9 kg/m2 112/82 mm[Hg] 12/30/2020 02:15PM Consult 30 Height Weight BMI 175.26 cm 92.99 kg 30.3 kg/m2 10/14/2020 09:20AM Follow Up 20 Height Weight BMI Blood Pressure 175.26 cm 93.92 kg 30.6 kg/m2 154/100 mm[Hg] 08/10/2020 09:40AM Follow Up 20 Blood Pressure 170/92 mm[Hg] 07/03/2020 07:40AM Acute 20 Weight Blood Pressure 83.37 kg 140/100 mm[Hg] 04/15/2019 01:00PM Acute 20 Height Weight BMI Blood Pressure 175.26 cm 87.82 kg 28.6 kg/m2 138/94 mm[Hg] 01/16/2019 10:40AM Follow Up 20 Height Weight BMI Blood Pressure 175.26 cm 88.11 kg 28.7 kg/m2 142/80 mm[Hg] 12/28/2018 10:30AM Office 15 Height Weight BMI Blood Pressure 175.26 cm 90.72 kg 29.5 kg/m2 162/100 mm[Hg] 12/19/2018 08:45AM Office 15 Height Blood Pressure 175.26 cm 134/76 mm[Hg] 11/20/2018 10:20AM Acute 20 Height Weight BMI Blood Pressure 175.26 cm 88.86 kg 28.9 kg/m2 158/98 mm[Hg] 10/22/2018 04:20PM Acute 20 Height Weight BMI Blood Pressure 175.26 cm 88.04 kg 28.7 kg/m2 142/92 mm[Hg] 01/05/2018 Weight Blood Pressure 88.18 kg 150/90 mm[Hg] 05/22/2017 Weight Blood Pressure 83.87 kg 140/98 mm[Hg] 04/24/2017 Height Weight Blood Pressure 174.63 cm (1) 85.28 kg 168/92 mm[Hg] (2) 85.32 kg 03/22/2016 Height Weight Blood Pressure 172.97 cm 82.92 kg 142/88 mm[Hg]
--- NOTE | 2022-02-15 07:48 | DI.CTLCSR_ITS ---
Exam(s) CT CHEST LUNG CANCER SCREEN EXAM: CT CHEST LUNG CANCER SCREEN CLINICAL HISTORY: SCREENING FOR CANCER Z12.2, CURRENT SMOKER F17.210. TECHNIQUE: Imaging Protocol: Low Dose Technique CONTRAST MATERIAL: None COMPARISON: No exams were available for comparison FINDINGS: CHEST: LUNGS: There is pleural based infiltrate in the lateral basal segment of the right lower lobe. Also milder pleural based increased markings are noted in the anterior basal segment of the right lower lo be as well as in upper aspect of the posterior basal segment. No associated pleural effusion.. In t he opposite-left lung there are benign-appearing subpleural increased markings in the lateral aspect of the upper lobe. No other upper lobe findings nor significant focal findings in the superior lingu lar segment. Benign-appearing increased markings are noted in the inferior lingular segment. In the left lower lobe there is some pleural based infiltrate in the posterior basal segment, as well as a small area of nodular infiltrate in the lateral basal segment measuring 10 x 8 millimeters. (Series 2/image 123). No pleural effusion. There are no significant focal findings in the trachea and mainstem bronchi. MEDIASTINUM: There is no obvious hilar nor mediastinal adenopathy. Visualized thyroid unremarkable. CARDIAC: Heart size is normal. There is no pericardial effusion.Caliber thoracic aorta is within nor mal limits. OTHER: Right adrenal gland unremarkable. Small nodule in noted in the left adrenal gland measuring 1 .8 x 1.7 cm. Spleen is not enlarged. There is a partially included abnormality in the superior pole the right kidney measuring 3.5 x 3.4 cm. This is only partially included in the field of view and i s denser than a typical cyst. Follow-up ultrasound recommended OSSEOUS: No significant osseous lesions.No fractures evident. IMPRESSION: 1. Findings in both lung rivas as described above which require six-month follow-up CT scan. 2. In addition to a small nodule in the left adrenal gland, there is a finding in the superior aspect of the right kidney which is only partially included in the field of view of this study. Follow-up renal ultrasound recommended to ensure that this is not a solid neoplastic mass. 3. Lung RADS Cat 3S - Probably Benign: Probably benign finding(s) - short term follow-up suggested; i nclude nodules with a low likelihood of becoming a clinically active cancer. RENAL ULTRASOUND RECOMMENDED. Lung-RADS 1.0 CATEGORIES: Category 0 - Prior chest CT exam(s) being located for comparison. Category 1 - Annual screening in 12 months. No nodules or definitely benign nodules. Category 2 - Annual screening in 12 months. Benign appearance. Nodules with low likelihood of becomin g active cancer. Category 3 - 6-month follow-up. Probably benign. Short-term follow-up suggested. Nodules with low lik elihood of becoming active cancer. Category 4A - 3-month follow-up and CT/PET if >8 mm in size. Suspicious finding. Findings which requi re additional testing. Category 4B - Findings which require additional testing and tissue sampling. Category 4X - Category 3 or 4 nodules with additional features or imaging findings that increases the suspicion of malignancy. Modifier S- Potentially clinically significant findings (non lung cancer) RADIATION DOSE DELIVERED: 92.99mGy.cm Total DLP 2.21mGyCTDIvol DATA REPOSITORY: All CT scans at this facility are submitted to the National Radiology Data Registry (NRDR) Dose Index Registry (DIR) with the [employer] ([employer]). RADIATION OPTIMIZATION: All CT scans at this facility use at least one of these dose optimization te chniques: automated exposure control; mA and/or kV adjustment per patient size (includes targeted exa ms where dose is matched to clinical indication); or iterative reconstruction.
== END 2022-02-15 00:22 ==
PROVIDERS: PCP Physician Assistant; Visit Provider Family Medicine
DX: R55 Syncope and collapse (principal)
CPT/HCPCS: 71271; 78452; 93017

== ENCOUNTER 2023-02-21 06:06 | Day surgery (SDC) | payer MEDICAID, SELFPAY ==
[2023-02-21] VITALS (8 sets, daily range): BP systolic 115–157; BP diastolic 67–103; PULSE 82–106; RESP 20–22; TEMP 36.7–36.8; O2SAT 92–98; BMI 30.4
--- NOTE | 2023-02-21 06:44 | W.PM.HP.N ---
Date of service: 02/21/23 Time of Service: 06:44 Assessment and Plan Assessment and plan (1) Abnormal chest CT: Status: Acute (2) Sleep apnea, obstructive: Status: Chronic (3) Nicotine dependence: Status: Acute Assessment and plan: Patient stable and safe to proceed with flexible bronchoscopy. Informed consent obtained and answered questions. History of Present Illness Narrative: This is a 57 yo with an abnormal chest CT consistent with a hypersensitivity pneumonitis, who is presenting today for bronchoscopy. Plan is to rule out infectious etiology of CT findings prior to treating with steroids. He has some coughing present and continues to smoke. 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 (Acute) Alcohol dependence (Acute) Alcoholic cardiomyopathy (Acute) Anxiety (Chronic) Chronic cough (Acute) Chronic low back pain (Chronic) Colitis (Acute) Decreased cardiac ejection fraction (Acute) Deep venous thrombosis (Chronic) Depressive disorder (Chronic) Hyperlipidemia (Acute) Neck pain (Acute) Sprain, neck (Acute) Nicotine dependence (Acute) Sleep apnea, obstructive (Chronic) Overweight (Acute) Raised prostate specific antigen (Acute) Renal insufficiency (Chronic) Renal mass (Acute) Right inguinal hernia (Acute) Type 2 diabetes mellitus without complications (Acute) Dyspnea (Acute) Sleep apnea (Acute) Blood clot in vein (Acute) Pulmonary scarring (Acute) Medical History (Updated 02/21/23 @ 06:47 by Anna Cam MD) GERD (gastroesophageal reflux disease) Hypertension Surgical History H/O hand surgery History of colonoscopy 07/21/21 History of repair of inguinal hernia 02/08/19 Repair of inguinal hernia (03/15/18) right Family History (Updated 12/26/22 @ 10:17 by Angelica Whalen) Mother Asthma Environmental allergies Maternal Grandmother Heart disease Social History (Updated 12/26/22 @ 10:19 by Angelica Whalen) Smoking/Tobacco Use Status: Current every day Tobacco Type: cigarettes Smoking packs per day: 0.5 Smoking cigarettes per day: 10.0 Smoking risk assessment performed?: Yes Alcohol Intake: current Alcohol Intake frequency: 3 or more drinks per day Alcohol type: beer Drug use: Never Do you feel safe at home: Yes Do you feel safe in your relationship?: Yes Meds Allergies and Home Medications Allergies Allergy/AdvReac Type Severity Reaction Status Date / Time metformin AdvReac Unknown Itching Verified 02/21/23 06:25 oxycodone AdvReac Unknown itching, Verified 02/21/23 06:25 nausea amolodipne AdvReac Mild Swelling/Ed Uncoded 02/21/23 06:25 sarah Home Medications Medication Instructions Recorded Confirmed Type lisinopril 40 mg tablet 40 mg PO DAILY 02/23/18 02/21/23 History omeprazole 20 mg capsule,delayed 20 mg PO DAILY 02/23/18 02/21/23 History release atorvastatin 40 mg tablet 40 mg PO DAILY 08/24/22 02/21/23 History budesonide 3 mg 3 mg PO QAM 08/24/22 02/21/23 History capsule,delayed,extended release diazepam 5 mg tablet 5 mg PO QHS PRN 08/24/22 02/21/23 History fluocinonide 0.05 % topical cream 1 applic topical BID 08/24/22 02/21/23 History hydrocodone 7.5 mg-acetaminophen 1 tab PO BID PRN 08/24/22 02/21/23 History 325 mg tablet ondansetron HCl 4 mg tablet 4 mg PO Q6H PRN 08/24/22 02/21/23 History rivaroxaban 20 mg tablet (Xarelto) 20 mg PO QPM 08/24/22 02/21/23 History sumatriptan succinate 50 mg tablet 50 mg PO DIRECTED 08/24/22 02/21/23 History albuterol sulfate 90 mcg/actuation 2 puff inhalation Q6H PRN 12/26/22 02/21/23 Rx aerosol inhaler (Proventil HFA) shortness of breath or wheezing #8.5 grams hydrocodone 5 mg-acetaminophen 325 1 tab PO BID PRN 12/26/22 12/26/22 History mg tablet ibuprofen 600 mg tablet 600 mg PO TID PRN pain 12/26/22 02/21/23 History varenicline 0.5 mg (11)-1 mg (42) See Rx Instructions PO PER PKG DIR 12/26/22 12/26/22 Rx tablets in a dose pack #53 dose pk varenicline 1 mg tablet 1 mg PO BID #56 tabs 12/26/22 12/26/22 Rx Exam Narrative Exam Narrative: Gen: NAD, normal respiratory effort, well-nourished HENT: PERRL, nasal turbinates normal without erythema or inflammation, moist oral mucosa, Mallampati 4, No LAD or JVD Chest: No respiratory distress, normal appearance of chest, clear to auscultation bilaterally, no wheeze or crackles Heart: regular rate and rhythym, no murmurs, rubs or gallops Abdomen: Non-distended, soft, non tender Extremities: No clubbing, edema, cyanosis, rashes Neuro: AAOx3 , non focal Psych: cooperative, appropriate mental affect Results Last Vital Signs Temp 36.7 C 02/21/23 06:15 Pulse 88 02/21/23 06:15 Resp 20 02/21/23 06:15 Pulse Ox 98 02/21/23 06:15 Time Spent Time spent with Patient: <40 minutes Time was spent: preparing to see the patient(eg.review tests), obtaining and/or reviewing separately otained hiistory, referring, communicating with other health respiratory care practitioner and counseling the patient
[2023-02-21] MEDS: Lactated Ringers 1,000 ML 80 ML IV (06:58)
--- NOTE | 2023-02-21 07:03 | W.ANESPRE ---
General Info Date of Service Date Performed: 02/21/23 Height: 5 ft 8.5 in Weight: 92 kg Body Mass Index (BMI): 30.4 Surgical Procedure: Operation Date: 02/21/23 07:40 Proposed Procedure Side Surgeon p Bronchoscopy w/MAYCOL Cam MD Meds Allergies and Home Medications Allergies Allergy/AdvReac Type Severity Reaction Status Date / Time metformin AdvReac Unknown Itching Verified 02/21/23 06:25 oxycodone AdvReac Unknown itching, Verified 02/21/23 06:25 nausea amolodipne AdvReac Mild Swelling/Ed Uncoded 02/21/23 06:25 sarah Home Medication Medication Instructions Recorded lisinopril 40 mg tablet 40 mg PO DAILY 02/23/18 omeprazole 20 mg capsule,delayed 20 mg PO DAILY 02/23/18 release atorvastatin 40 mg tablet 40 mg PO DAILY 08/24/22 budesonide 3 mg 3 mg PO QAM 08/24/22 capsule,delayed,extended release diazepam 5 mg tablet 5 mg PO QHS PRN 08/24/22 fluocinonide 0.05 % topical cream 1 applic topical BID 08/24/22 hydrocodone 7.5 mg-acetaminophen 1 tab PO BID PRN 08/24/22 325 mg tablet ondansetron HCl 4 mg tablet 4 mg PO Q6H PRN 08/24/22 rivaroxaban 20 mg tablet (Xarelto) 20 mg PO QPM 08/24/22 sumatriptan succinate 50 mg tablet 50 mg PO DIRECTED 08/24/22 albuterol sulfate 90 mcg/actuation 2 puff inhalation Q6H PRN 12/26/22 aerosol inhaler (Proventil HFA) shortness of breath or wheezing #8.5 grams hydrocodone 5 mg-acetaminophen 325 1 tab PO BID PRN 12/26/22 mg tablet ibuprofen 600 mg tablet 600 mg PO TID PRN pain 12/26/22 varenicline 0.5 mg (11)-1 mg (42) See Rx Instructions PO PER PKG DIR 12/26/22 tablets in a dose pack #53 dose pk varenicline 1 mg tablet 1 mg PO BID #56 tabs 12/26/22 Current Visit Medications: Current Medications Generic Name Dose Route Start Last Admin Trade Name Freq PRN Reason Stop Dose Admin Albuterol/Ipratropium 3 ml 02/21/23 06:48 Albuterol/Ipratropium 3 Ml Upd Vial UPD 03/23/23 06:47 Q2H PRN PRN Ringer's Solution 1,000 mls @ 80 mls/hr 02/21/23 06:00 02/21/23 06:58 IV 02/21/23 23:59 80 mls/hr INFUSION TUAN Administration IV Miscellaneous Supplies 1 each 02/21/23 06:00 Iv Access IV 02/21/23 23:59 DIRECTED TUAN Sodium Chloride 0 ml 02/21/23 06:00 Normal Saline Flush 10 Ml Syr IV 02/21/23 23:59 PRN PRN Sodium Chloride 0 ml 02/21/23 06:00 Normal Saline 10 Ml Vial IJ 02/21/23 23:59 DIRECTED PRN Sterile Water 0 ml 02/21/23 06:00 Water,Injection,Sterile 10 Ml Vial IJ 02/21/23 23:59 DIRECTED PRN PFSH Active Problems Active Problems: Problem Status Onset Code 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 Alcohol dependence F10.20 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 Anxiety F41.9 Chronic cough R05.3 Chronic low back pain M54.50, G89.29 Colitis K52.9 Decreased cardiac ejection fraction R93.1 Deep venous thrombosis I82.409 Depressive disorder F32.A Hyperlipidemia E78.5 Neck pain M54.2 Sprain, neck S13.9XXA Nicotine dependence F17.200 Sleep apnea, obstructive G47.33 Overweight E66.3 Raised prostate specific antigen R97.20 Renal insufficiency N28.9 Renal mass N28.89 Right inguinal hernia K40.90 Type 2 diabetes mellitus without complications E11.9 Dyspnea R06.00 Sleep apnea G47.30 Blood clot in vein I82.90 Pulmonary scarring J98.4 Medical History Medical History (Updated 02/21/23 @ 06:47 by Anna Cam MD) GERD (gastroesophageal reflux disease) Hypertension Surgical History Surgical History H/O hand surgery History of colonoscopy 07/21/21 History of repair of inguinal hernia 02/08/19 Repair of inguinal hernia (03/15/18) right Tobacco Smoking/Tobacco Use Status: Current every day Tobacco Type: cigarettes Smoking packs per day: 0.5 Smoking cigarettes per day: 10.0 Alcohol Alcohol Intake: current Alcohol intake frequency: 3 or more drinks per day Alcohol type: beer Substance Use Substance use: Never Vital Signs and Lab Results Vital Signs Most Recent Vital Signs in EMR: Most Recent Vital Signs Temp Pulse Resp Pulse Ox 36.7 C 88 20 98 02/21/23 06:15 02/21/23 06:15 02/21/23 06:15 02/21/23 06:15 Lab Results Blood Type / Crossmatch: No Data to Display Complete Blood Count: No Data to Display Complete Metabolic Panel: No Data to Display Liver Function Panel: No Data to Display Coagulation Panel: No Data to Display Cardiac Panel: No Data to Display Arterial Blood Gas: No Data to Display Venous Blood Gas: No Data to Display Pancreas Panel: No Data to Display Thyroid Panel: No Data to Display Infectious Disease: No Data to Display Blood Cultures: No Data to Display Toxicology Panel: No Data to Display Anesthesia Assessment and Plan Anesthesia History Personal History: No History of Anesthesia Complications, PONV and Awareness Under Anesthesia Family History: No Family History of Anesthesia Complications Exercise Tolerance Exercise Tolerance: Metabolic Equivalents>4 Cardiac & Pulmonary Exam Cardiac Exam: Normal S1/S2 Heart Sounds and Other Pulmonary Exam: Clear Bilateral Breath Sounds Cardiac and Pulmonary Comment:: Pulmonology Office Visit PATIENT NAME: Arnie Galeas #: [id number] ADMITTING PROVIDER: Anna Cam M.D. PRIMARY CARE PROVIDER: SAULO CARSON DATE OF ADMIT: 12/26/22 : 1965 Patti Spoke to patient regarding CT and echo results. I recommend bronchoscopy to assess for infection, however I do suspect a hypersensitivity pneumonitis due to patternon HRCT and exposures. Patient agreeable to plan. I will plan on sending HP panel when at hospital for bronch. Addendum dictated by Anna Cam M.D. 01/26/23 1147 <Electronically signed by Anna Cam M.D.> 01/26/23 1147 Transcribed By: Anna Cam MD 01/26/23 1147 Cosigned by Patti TTE completed 01/19/23 LVEF 55%, no valvular disease, normal bubble study, PAP 18mmHg He was sleeping according to person who answered phone - left message about wanting to touch base regarding these results and next steps. He will call me tomorrow. We will discuss bronchoscopy, given HRCT and normal echo. Addendum dictated by Anna Cam M.D. 01/23/23 1544 <Electronically signed by Anna Cam M.D.> 01/23/231543 Transcribed By: Anna Cam MD 01/23/231543 Cosigned by Addenda HRCT completed 01/10/23 Patchy ground glass especially in the upper lobes, not present previously. The liver is heterogeneous, this could represent an infiltrative process, recommend MRI if clinically indicated. Mild subpleural interstitial densities in the lower lobes, may represent mild chronic lung changes. Implantable Cardiac Device Does patient have a Pacemaker or an ICD?: No Airway Exam Known Difficult Airway: No Mallampati Class: 3 Mouth Opening: Normal (> 3cm) Thyromental Distance: Greater than 3 cm Neck Range of Motion: Full ROM Neck Circumference: Normal Teeth Condition: Generalized Poor Dentition ASA Classification ASA Score: ASA 3 Emergency Case?: No NPO Status NPO Status: NPO Clears >2 hours, Solids >8 hours Anesthesia Plan Resuscitation Status: Full Code Anesthesia Technique: General Anesthesia Airway Planned: Endotracheal Tube Monitors Used: Standard Monitors
[2023-02-21] MEDS: Lidocaine 1% Pres-Free 5 ML VIAL (07:51)
--- NOTE | 2023-02-21 07:55 | PAPNONF_PTH ---
PATIENT: Arnie Galeas LOC: [facility] U#:[id number] AGE/SX: 57/M ROOM: RE02/21/[address]: Anna Cam MD : 1965 BED: DIS: 02/21/2023 SPEC #: [id number] RECD: 02/21/23 13:00 STATUS: MARKEL REQ #: [id number] WILL: 02/21/23 07:[address]: Anna Cam [facility]PT[facility] Cytology RECD BY: Ivana Bearden ENTERED: 02/21/23 13:01 SP TYPE: FANNY ABDI DR: Roque Breen Tissues: 1 - BODY FLUID CYTO(NOT S/U/N/EM)[facility] Procedures: BODY FLUID CYTO(NOT SPU/UR/NIP/ENDOM)[facility] Comments: (TV= 10 ml, SENT FRESH) (REFRIGERATED)
--- NOTE | 2023-02-21 08:21 | W.ANESPRE ---
General Info Date of Service Date Performed: 02/21/23 Height: 5 ft 8.5 in Weight: 92 kg Body Mass Index (BMI): 30.4 Surgical Procedure: Operation Date: 02/21/23 07:40 Proposed Procedure Side Surgeon p Bronchoscopy w/BAL Anna Cam MD Actual Procedure Side Surgeon p Bronchoscopy w/BAL Not Applicable Anna Cam MD Pre-Op Diagnosis Post-Op Diagnosis Abnormal chest CT Abnormal chest CT Meds Allergies and Home Medications Allergies Allergy/AdvReac Type Severity Reaction Status Date / Time metformin AdvReac Unknown Itching Verified 02/21/23 06:25 oxycodone AdvReac Unknown itching, Verified 02/21/23 06:25 nausea amolodipne AdvReac Mild Swelling/Ed Uncoded 02/21/23 06:25 sarah Home Medication Medication Instructions Recorded lisinopril 40 mg tablet 40 mg PO DAILY 02/23/18 omeprazole 20 mg capsule,delayed 20 mg PO DAILY 02/23/18 release atorvastatin 40 mg tablet 40 mg PO DAILY 08/24/22 budesonide 3 mg 3 mg PO QAM 08/24/22 capsule,delayed,extended release diazepam 5 mg tablet 5 mg PO QHS PRN 08/24/22 fluocinonide 0.05 % topical cream 1 applic topical BID 08/24/22 hydrocodone 7.5 mg-acetaminophen 1 tab PO BID PRN 08/24/22 325 mg tablet ondansetron HCl 4 mg tablet 4 mg PO Q6H PRN 08/24/22 rivaroxaban 20 mg tablet (Xarelto) 20 mg PO QPM 08/24/22 sumatriptan succinate 50 mg tablet 50 mg PO DIRECTED 08/24/22 albuterol sulfate 90 mcg/actuation 2 puff inhalation Q6H PRN 12/26/22 aerosol inhaler (Proventil HFA) shortness of breath or wheezing #8.5 grams hydrocodone 5 mg-acetaminophen 325 1 tab PO BID PRN 12/26/22 mg tablet ibuprofen 600 mg tablet 600 mg PO TID PRN pain 12/26/22 varenicline 0.5 mg (11)-1 mg (42) See Rx Instructions PO PER PKG DIR 12/26/22 tablets in a dose pack #53 dose pk varenicline 1 mg tablet 1 mg PO BID #56 tabs 12/26/22 Current Visit Medications: Current Medications Generic Name Dose Route Start Last Admin Trade Name Lucio PRN Reason Stop Dose Admin Albuterol/Ipratropium 3 ml 02/21/23 06:48 Albuterol/Ipratropium 3 Ml Upd Vial UPD 03/23/23 06:47 Q2H PRN PRN Ephedrine Sulfate 0 mg 02/21/23 08:07 Ephedrine 25 Mg/5 Ml Syringe IVP 03/23/23 08:06 DIRECTED PRN Ringer's Solution 1,000 mls @ 80 mls/hr 02/21/23 06:00 02/21/23 08:10 IV 02/21/23 23:59 80 mls/hr INFUSION TUAN Infusion IV Miscellaneous Supplies 1 each 02/21/23 06:00 Iv Access IV 02/21/23 23:59 DIRECTED TUAN Naloxone HCl 0 mg 02/21/23 08:07 Naloxone 0.4 Mg/Ml Vial IVP 03/23/23 08:06 PRN PRN Sodium Chloride 0 ml 02/21/23 06:00 Normal Saline Flush 10 Ml Syr IV 02/21/23 23:59 PRN PRN Sodium Chloride 0 ml 02/21/23 06:00 Normal Saline 10 Ml Vial IJ 02/21/23 23:59 DIRECTED PRN Sterile Water 0 ml 02/21/23 06:00 Water,Injection,Sterile 10 Ml Vial IJ 02/21/23 23:59 DIRECTED PRN PFSH Active Problems Active Problems: Problem Status Onset Code Abnormal chest CT R93.89 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 Alcohol dependence F10.20 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 Anxiety F41.9 Chronic cough R05.3 Chronic low back pain M54.50, G89.29 Colitis K52.9 Decreased cardiac ejection fraction R93.1 Deep venous thrombosis I82.409 Depressive disorder F32.A Hyperlipidemia E78.5 Neck pain M54.2 Sprain, neck S13.9XXA Nicotine dependence F17.200 Sleep apnea, obstructive G47.33 Overweight E66.3 Raised prostate specific antigen R97.20 Renal insufficiency N28.9 Renal mass N28.89 Right inguinal hernia K40.90 Type 2 diabetes mellitus without complications E11.9 Dyspnea R06.00 Sleep apnea G47.30 Blood clot in vein I82.90 Pulmonary scarring J98.4 Medical History Medical History (Updated 02/21/23 @ 06:47 by Anna Cam MD) GERD (gastroesophageal reflux disease) Hypertension Surgical History Surgical History H/O hand surgery History of colonoscopy 07/21/21 History of repair of inguinal hernia 02/08/19 Repair of inguinal hernia (03/15/18) right Tobacco Smoking/Tobacco Use Status: Current every day Tobacco Type: cigarettes Smoking packs per day: 0.5 Smoking cigarettes per day: 10.0 Alcohol Alcohol Intake: current Alcohol intake frequency: 3 or more drinks per day Alcohol type: beer Substance Use Substance use: Never Vital Signs and Lab Results Vital Signs Most Recent Vital Signs in EMR: Most Recent Vital Signs Temp Pulse Resp Pulse Ox 36.7 C 88 20 98 02/21/23 06:15 02/21/23 06:15 02/21/23 06:15 02/21/23 06:15 Lab Results Blood Type / Crossmatch: No Data to Display Complete Blood Count: No Data to Display Complete Metabolic Panel: No Data to Display Liver Function Panel: No Data to Display Coagulation Panel: No Data to Display Cardiac Panel: No Data to Display Arterial Blood Gas: No Data to Display Venous Blood Gas: No Data to Display Pancreas Panel: No Data to Display Thyroid Panel: No Data to Display Infectious Disease: No Data to Display Blood Cultures: No Data to Display Toxicology Panel: No Data to Display Imaging and Studies Imaging and Studies Study information below may be from another EMR and interpreted by another provider. Please see original notes in EMR for more complete details. Stress Test Summary: 02/15/22: Negative ischemia Echocardiogram Summary: 01/19/23: EF 55%, Normal Valves Anesthesia Assessment and Plan Anesthesia History Personal History: No History of Anesthesia Complications, Unknown Anesthesia History and Awareness Under Anesthesia Family History: No Family History of Anesthesia Complications Exercise Tolerance Exercise Tolerance: Metabolic Equivalents>4 Pertinent Negatives Pertinent Negatives: No Symptoms of GERD Cardiac & Pulmonary Exam Cardiac Exam: Normal S1/S2 Heart Sounds Pulmonary Exam: Clear Bilateral Breath Sounds Implantable Cardiac Device Does patient have a Pacemaker or an ICD?: No Airway Exam Known Difficult Airway: No Mallampati Class: 3 Mouth Opening: Normal (> 3cm) Thyromental Distance: Greater than 3 cm Neck Range of Motion: Full ROM Neck Circumference: Normal Teeth Condition: Generalized Poor Dentition ASA Classification ASA Score: ASA 2 Emergency Case?: No NPO Status NPO Status: NPO Clears >2 hours, Solids >8 hours Anesthesia Plan Resuscitation Status: Full Code Anesthesia Technique: General Anesthesia Airway Planned: Endotracheal Tube Monitors Used: Standard Monitors
--- NOTE | 2023-02-21 08:33 | W.PM.OP ---
Date of service: 02/21/23 Time of Service: 07:30 Operative Note Operative Note PRE-OP DIAGNOSIS: Abnormal chest CT POST-OP DIAGNOSIS: same Refer to Anesthesia Record Procedure Description: Bronchoscopy Indication:Bnormal chest CT Procedure performed: Flexible bronchoscopy with BAL Sedation plan: general anesthesia Informed consent was obtained after the risks and benefits or the procedure were discussed. A proper and complete OR compliant time out was performed. The therapeutic 6.2mm Olympus bronchoscope was inserted through the endotracheal tube. The bronchoscope was inserted into the airways, where 3cc in total of 1% topical lidocaine was used the anesthetize the airways. The trachea was midline and without lesion or injury. The mucosa appeared normal and there were no signs of tracheomalacia. The genna was sharp. All bronchial subsegments were visualized within each lobe and showed minimal to scant white to off white, easy to suction secretions. A bronchoalveolar lavage was performed in the DEANNA. A total of 120cc of saline was administered with a return of 35cc. The fluid was slightly cloudy in appearance with some visible mucus plugs. The bronchoscope was then removed and the case terminated. The patient was taken to PACU in stable condition. Samples collected:DEANNA BAL Testing ordered:cell diff, bacterial, AFB and fungal culture, expanded respiratory viral panel, cytopathology Complications:None Anna Cam MD Pulmonary & Critical Care Medicine
--- NOTE | 2023-02-21 10:51 | W.ANESPOSTOP ---
Postoperative Evaluation Date, Time and Location Date Performed: 02/21/23 Time Performed: 09:10 Patient Location: Day Surgery Unit Vital Signs Most Recent Imported Vital Signs: Most Recent Vital Signs Temp Pulse Resp BP Pulse Ox 36.8 C 88 20 152/100 H 96 02/21/23 09:10 02/21/23 09:10 02/21/23 09:10 02/21/23 09:10 02/21/23 09:10 Pain Score Most Recent Pain Score: Most Recent Pain Score Pain Level 0 02/21/23 08:43 Assessment Mental Status: Awake (Alert & Oriented to Patient Baseline) Airway and Respiratory Function: Patent airway with normal (patient baseline) respiratory exam Cardiovascular Function: Hemodynamically Stable Hydration Status: Adequately Hydrated Nausea & Vomiting: No Nausea or Vomiting Pain: Pt. Denies Any Pain Peripheral Nerve Block: Patient did not receive a nerve block
[2023-02-22 01:45] LABS: Adenovirus DNA Result Negative (Negative); Metapneumovirus RNA Result Negative (Negative); Parainfluenza Type1 RNA Result Negative (Negative); Parainfluenza Type2 RNA Result Negative (Negative); Parainfluenza Type3 RNA Result Negative (Negative); Parainfluenza Type4 RNA Result Negative (Negative); Rhinovirus RNA Result Negative (Negative)
[2023-02-22 16:05] LABS: Lymphocytes Fluid Relative 5 %
[2023-02-22 16:06] LABS: Mono/Macrophage Fluid Relative 95 %
[2023-03-21 11:41] LABS: Fungus Smear No Fungi Seen
== END 2023-02-21 09:30 | disposition home or self-care (01) ==
PROVIDERS: PCP Physician Assistant; Visit Provider Student in an Organized Health Care Education/Training Program
PROC: 0BJ08ZZ Inspection of Tracheobronchial Tree, Via Natural or Artificial Opening Endoscopic (ICD-10-PCS; CPT 31622; principal; 2023-02-21 07:30)
DX: R91.8 Other nonspecific abnormal finding of lung field (principal); F17.210 Nicotine dependence, cigarettes, uncomplicated; G47.33 Obstructive sleep apnea (adult) (pediatric); F10.20 Alcohol dependence, uncomplicated; E11.9 Type 2 diabetes mellitus without complications; Z79.899 Other long term (current) drug therapy
CPT/HCPCS: 31624; 80162; 87070; 87102; 87116; 87205; 87206; 87632; 88104; J1100; J2250; J2405; J2704

== ENCOUNTER 2024-08-14 10:41 | Outpatient (REF) | payer MEDICAID, SELFPAY ==
[2024-08-14 11:01] LABS: HCT 40.8 % (40.0-50.0); HGB 13.7 g/dL (13.5-17.5); MCH 29.2 pg (27.0-33.0); MCHC 33.6 % (32.0-36.0); MCV 87 fL (80-95); MPV 8.6 fL (8.0-11.0); Platelet Count 262 10^3/uL (130-400); RBC 4.69 10^6/uL (4.36-5.78); RDW 13.9 % (11.8-14.1); RDW-SD 44.1 fL; WBC 13.23 10^3/uL (4.4-10.8)
[2024-08-14 11:31] LABS: Absolute Lymphocyte Count 1.06 10^3/uL (1.2-3.4); Absolute Monocyte Count 2.12 10^3/uL (0.1-0.8); Absolute Neutrophil Count 9.13 10^3/uL (1.2-6.7); Diff Comment Manual Differential; Metamyelocytes % 3; Myelocytes % 1
[2024-08-14 11:32] LABS: RBC Morphology Normal
[2024-08-14 18:04] LABS: Rheumatoid Factor <8.6 IU/mL (<12.0)
[2024-08-14 20:18] LABS: IgE 978 IU/mL (<158)
[2024-08-15 09:31] LABS: Cyclic Citrullinated Peptide <2.5 U/mL (<5.0)
[2024-08-15 14:12] LABS: ANA Interpretation Negative (Negative)
[2024-08-15 19:42] LABS: Myeloperoxidase Ab IgG <0.2 U (>=0.4); Proteinase 3 Ab (PR3) <0.2 U
[2024-08-16 14:47] LABS: Ro60 Ab, IgG <7.0 CU (<20.0); SS-A/Ro, IgG <2.3 CU (<20.0); SS-B (La) Ab, IgG <3.3 CU (<20.0); Sm (Smith) Ab, IgG <8.0 CU (<20.0); dsDNA Ab, IgG <22.0 IU/mL (<27.0)
[2024-09-16 13:34] LABS: Anti-Jo-1 Ab <20 Units (<20); Anti-PL-7 Ab Negative (Negative)
[2024-09-16 13:35] LABS: Anti-EJ Ab Negative (Negative); Anti-Mi-2-Ab Negative (Negative); Anti-OJ Ab Negative (Negative); Anti-PL-12 Ab Negative (Negative); Anti-SRP Ab Negative (Negative)
[2024-09-16 13:36] LABS: Anti-Ku Ab Negative (Negative); Anti-MDA-5 Ab (CADM-140) <20 Units (<20); Anti-NXP-2 (P140) Ab <20 Units (<20); Anti-PM/Scl-100 Ab <20 Units (<20); Anti-SS-A 52kD Ab, IgG <20 Units (<20); Anti-TIF-1gamma Ab <20 Units (<20)
[2024-09-16 13:37] LABS: Anti-U1 RNP Ab <20 Units (<20); Anti-U2 RNP Ab Negative (Negative)
[2024-09-16 13:38] LABS: Anti-U3 RNP (Fibrillarin) Negative (Negative)
== END 2024-08-14 10:42 | disposition home or self-care (01) ==
LOC: LBN 10:41
PROVIDERS: PCP Physician Assistant; Visit Provider Physician Assistant Surgical
DX: L30.9 Dermatitis, unspecified (principal); R93.89 Abnormal findings on diagnostic imaging of other specified body structures; J67.9 Hypersensitivity pneumonitis due to unspecified organic dust; J45.909 Unspecified asthma, uncomplicated
CPT/HCPCS: 83516; 86200; 86235; 82785; 85025; 86038; 86225; 86431

== ENCOUNTER 2024-11-15 20:26 | Day surgery (SDC) | payer MEDICAID, SELFPAY | END 2024-11-15 20:27 | disposition home or self-care (01) | LOC: SUR 20:27 | PROVIDERS: PCP Physician Assistant; Visit Provider Ophthalmology | DX: Z53.09 Procedure and treatment not carried out because of other contraindication (principal) ==